=== PATIENT | female | born 1935 | race Caucasian/White ===

== ENCOUNTER 2017-11-24 16:15 | Outpatient (RCR) | payer MEDICARE, BC ==
--- NOTE | 2017-11-01 14:24 | PT INITIAL EVALUATION ---
MEDICAL DIAGNOSIS: chronic low back TREATMENT DIAGNOSIS: same DATE OF ONSET: 11/01/15 SUBJECTIVE: Treva Dickens presents to physical therapy with complaints of low back pain. She states that the pain started approximately 2 years ago with no apparent mechanism of injury. She states that the pain increases with prolonged standing, cooking, making bed, and walking at least 1/2 mile. After doing an aggravated activity, she rates her pain to be approximately 6/10. She states reports her resting pain to be 0/10. Furthermore, she states that she feels like this low back pain is becoming worse. She also reports that the feels better with sitting and lying. She denies any of the following items: abnormal gait or bladder, surgeries, accidents, night pain, or unexplained weight loss. Pain location is T11-L1: spinous process to R facet process. REHAB PROBLEM LIST: Increased Pain Decreased ROM Decreased Strength Decreased Endurance Decreased Function Decreased ADL's PREVIOUS MEDICAL HISTORY: See EMR OCCUPATION: Retired OBJECTIVE: Posture: She demonstrated mild impairments with B rounded shoulders, thoracic kyphosis, and decreased lumbar lordosis. She demonstrated decreased pain with improved posture mechanics. ROM: Trunk: flexion: NIL: stretch end feel. extension: NIL: stretch end feel. Side gliding R: MIN: stretch end feel. Side gliding L: NIL: stretch end feel Strength: B hip abduction, extension, adduction, knee extension and flexion, and ankle DF and PF: 4+/5 or 5/5. Palpation: TTP: T11-L1: spinous process to R facet process Special Tests: AALIYAH: uncomfortable feeling during the test and better following the testing, which resulting in increased AROM in side gliding R. Mobility: Independent Gait: She demonstrated normal gait mechanics ASSESSMENT: Treva will benefit from skilled physical therapy addressing the listed impairments to improve function and QOL. During the examination, she demonstrated a posterior derangement that responded well to extension based principles with decreased pain and improved AROM. She is independent on her one home exercise. Short Term Goals 2 weeks: Pt will demonstrate centralized low back pain to improve function and QOL. 4 weeks: Pt will demonstrate abolished low back pain (0/10) to improve function and QOL. 6 weeks: Pt will be able to perform prolonged standing, cooking, and making beds to improve function and QOL. Patient's Goals no pain with standing, cooking, walking, and making bed. PLAN: Patient to be seen for Manual Therapy/STM/MET Strengthening/condition Range of Motion Spinal Stabilization Work Hardening/Cond Stretching Neuromuscular Re-ed Closed Chain Program Posture/Body mechanics Home Exercise Program Therapeutic Activities 2x/Week for 6 Weeks If you have any questions, comments, or concerns about this report or plan, please contact me at . Thank you, Tanner Romero, PT, DPT MTDD
[~2017-11-24 16:15] MED LIST: ALLERGY SHOTS SC; AMLO-96 PO; ATOR10TA24 PO; CALC500T6 PO; CALC500T76 PO; CALCIUM; CELE-1 PO; CELEBREX PO; CHOL100052 PO; CIPR-345 PO; CLOB15CR21 TP; CLOB15CR22 TP; CYA1000 PO; DOC100 PO; EST42T PV; FEX60 PO; FEXO-67 PO; FEXO30TA36 PO; FLUT10SP NS; FLUT16SP19 NS; FLUT1AER INH; IRON PO; LEVO50 PO; LEVO50TA86 PO; LEVO75TA68 PO; LISI-362 PO; LISI5TAB25 PO; LOR5 PO; LOSA25TA50 PO; LOSA50TA72 PO; NIT100 PO; OLO2ODPT OD; PANT40TA65 PO; POLY17PO25 PO; SIMV-42 PO; SIMV-49 PO; SODI30SP6 NS; SULF-198 PO; TOLT4CAP13 PO; TUM500 PO
--- NOTE | 2017-11-24 17:08 | PT PLAN OF CARE ---
Physician: Demarcus Ford MD Patient is being seen: 2x/week Therapist: Tanner Romero, PT, DPT Medical Diagnosis: chronic low back Treatment Diagnosis: same Date of Onset: 11/01/15 Date of Initial Evaluation: 11/01/17 Date patient was last seen: 11/24/17 Number of treatments: 6 Number of cancellations/No shows: 0 INTERVENTIONS: Manual Therapy/STM/MET Strengthening/condition Range of Motion Spinal Stabilization Work Hardening/Cond Stretching Neuromuscular Re-ed Closed Chain Program Posture/Body mechanics Home Exercise Program Therapeutic Activities GOALS: 2 weeks: Pt will demonstrate centralized low back pain to improve function and QOL. MET 4 weeks: Pt will demonstrate abolished low back pain (0/10) to improve function and QOL. MET 6 weeks: Pt will be able to perform prolonged standing, cooking, and making beds to improve function and QOL. MET PATIENT'S GOAL: no pain with standing, cooking, walking, and making bed. Status of Patient's Goals: MET Patient Compliance: Excellent Prognosis: Excellent Reasons for continuing therapy: This is a discharge note for Treva Dickens. She reports that she is doing well. She reports that she no longer has any low back pain. She states that she has been busy over the last two days without any low back pain. She states that she continues to work on posture and perform her specific exercise as prescribed. She progressed well with abolished low back pain, increased trunk AROM in all directions along with normal end feels. Furthermore, she demonstrated a complete return to function with abolished low back pain. She has met all of her goals. As a result, she will be discharged from PT. Posture: She demonstrated mild impairments with B rounded shoulders, thoracic kyphosis, and decreased lumbar lordosis. She demonstrated decreased pain with improved posture mechanics. ROM: Trunk: flexion: NIL: stretch end feel. extension: NIL: stretch end feel. Side gliding R: NIL: stretch end feel. Side gliding L: NIL: stretch end feel Strength: B hip abduction, extension, adduction, knee extension and flexion, and ankle DF and PF: 4+/5 or 5/5. Palpation: No longer TTP Mobility: Independent If you have any questions, please contact me at [phone]. Thank you, Tanner Romero, PT, DPT [facility]
[2018-01-02] MEDS ORDERED: LOSA50TA72 PO (17:15)
== END 2018-01-30 ==
LOC: PT 16:15
PROVIDERS: ATTEND Internal Medicine
DX: M54.9 Dorsalgia, unspecified (principal)
CPT/HCPCS: 97161

== ENCOUNTER → 2018-02-13 | Outpatient (CLI) | payer MEDICARE, BC ==
[~2018-02-13] MED LIST changes: +BENZ100C4 PO; +CIPR-215 PO
== END ==
LOC: LAB 11:08
PROVIDERS: ATTEND Internal Medicine
DX: N39.0 Urinary tract infection, site not specified (principal); B96.20 Unspecified Escherichia coli [E. coli] as the cause of diseases classified elsewhere
CPT/HCPCS: 87077; 87088; 87186

== ENCOUNTER → 2018-02-13 | Outpatient (CLI) | payer MEDICARE, BC ==
--- NOTE | 2018-02-13 15:26 | RADIOLOGY IMAGING REPORT ---
FACILITY: [facility] - [place] PATIENT NAME: Treva Dickens : 1935 MR: [id number] V: [id number] EXAM DATE: ORDERING PHYSICIAN: JAMIE BLUE TECHNOLOGIST: Location: [facility] - [place] Patient: Treva Dickens : 1935 Visit/Account:[id number] Date of Sevice: 02/13/2018 Technique: CHEST PA AND LAT HISTORY: cough COMPARISON: None available Findings: Mild bibasilar and right upper lung scarring versus atelectasis is noted. No pleural effus ion. There is mild pulmonary hyperexpansion. The cardiomediastinal silhouette is normal. Impression: 1. No acute cardiopulmonary process. 2. Chronic lung changes as described above. Report Dictated By: Jordan Oconnor DO at 02/13/2018 3:19 PM Report E-Signed By: Jordan Oconnor DO at 02/13/2018 3:21 PM WSN:[id number]
== END ==
LOC: RAD 14:51
PROVIDERS: ATTEND Internal Medicine
DX: R91.8 Other nonspecific abnormal finding of lung field (principal)
CPT/HCPCS: 71046

== ENCOUNTER → 2018-04-26 | Outpatient (CLI) | payer MEDICARE, BC | LOC: LAB 11:12 | PROVIDERS: ATTEND Internal Medicine | DX: N39.0 Urinary tract infection, site not specified (principal) | CPT/HCPCS: 81001; 87088 ==

== ENCOUNTER → 2018-05-04 | Outpatient (CLI) | payer MEDICARE, BC | LOC: LAB 11:21 | PROVIDERS: ATTEND Internal Medicine | DX: N39.0 Urinary tract infection, site not specified (principal) | CPT/HCPCS: 81001 ==

== ENCOUNTER 2018-05-23 20:02 | Inpatient (IN) | payer MEDICARE, BC ==
[~2018-05-23] VITALS: Ht 157.5 cm; Wt 61.9 kg
--- NOTE | 2018-05-23 20:08 | ER Report ---
History and Physical Time Seen By MD: 20:08 HPI/ROS CHIEF COMPLAINT: Right lower back pain, nausea, vomiting HISTORY OF PRESENT ILLNESS: Patient is an 82-year-old female here with complaints of right lower back pain superficial musculature. Pain started around May 17 and the patient was out walking. She reports that today the pain acutely worsened and she had nausea and vomiting as a result of the increased pain. She did take ibuprofen without significant relief of symptoms. Patient denies headache, blurred vision, chest pain, shortness of breath, abdominal pain , dysuria, hematuria, melena. REVIEW OF SYSTEMS: Constitutional: No fever, no chills. Eyes: No discharge. ENT: No sore throat. Cardiovascular: No chest pain, no palpitations. Respiratory: No cough, no shortness of breath. Gastrointestinal: No abdominal pain, no vomiting. Genitourinary: No hematuria. Musculoskeletal: + right lower back pain, reproducible on palpation. Skin: No rashes. Neurological: No headache. Allergies: Uncoded Allergies: hayfever (Allergy, Mild, UNKNOWN, 04/19/12) ANIMALS (Allergy, Unknown, 03/21/08) Home Meds Active Scripts Amlodipine Besylate (AMLODIPINE BESYLATE) 5 Mg Tablet, 1 TAB PO QDAY, #30 TAB 11 Refills Prov:JAMIE BLUE MD 02/13/18 Benzonatate 100 Mg Cap (TESSALON PERLE 100 MG CAP) 100 Mg Capsule, 100 MG PO TID Y for cough, #30 CAP Prov:JAMIE BLUE MD 02/13/18 Losartan Potassium (LOSARTAN POTASSIUM) 50 Mg Tablet, 50 MG PO BID, #180 TAB 3 Refills Prov:JAMIE BLUE MD 01/02/18 Levothyroxine Sodium (LEVOTHYROXINE SODIUM) 50 Mcg Tablet, 1 TAB PO QDAY, #90 TAB 3 Refills Prov:JAMIE BLUE MD 10/11/17 Simvastatin (SIMVASTATIN) 20 Mg Tablet, 1 TAB PO HS, #90 TAB 4 Refills Prov:JAMIE BLUE MD 04/25/17 Clobetasol Propionate/Emoll (CLOBETASOL EMOLLIENT 0.05% CRM) 15 Gm Cream..g., 2 SEE TP QWEEK Y for prn, #1 TUBE 1 Refill Prov:JAMIE BLUE MD 01/06/17 Reported Medications Calcium Carbonate (CALCIUM) 500 Mg Tablet, 1 TAB PO QDAY 04/05/17 Cyanocobalamin (Vitamin B-12) (VITAMIN B-12) 1,000 Mcg Tablet, 1 MCG PO QDAY 04/05/17 Fluticasone/Vilanterol 100/25 Mcg/Inh (BREO ELLIPTA 100/25 MCG) 1 Each Aer.pow.ba, 1 INH INH QDAY, INH 02/22/17 Cholecalciferol (Vitamin D3) (VITAMIN D) 1,000 Unit Tablet, 1 TAB PO DAILY 08/21/14 Discontinued Scripts Sulfamethoxazole/Trimet 800-160 Mg Tab (BACTRIM DS TABLET) 1 Each Tablet, 1 TAB PO Q12H for 5 Days, #10 TAB Prov:JAMIE BLUE MD 04/26/18 Smoking Status: Never Smoker Hx Alcohol Use: No Constitutional Vital Sign - Last 24 Hours 05/23/18 05/23/18 05/23/18 05/23/18 20:07 20:08 20:17 20:30 Temp 98.2 Pulse 73 74 Resp 16 B/P (MAP) 162/74 (103) 162/74 155/76 (102) Pulse Ox 97 93 O2 Delivery Room Air 05/23/18 05/23/18 05/23/18 05/23/18 20:32 20:47 21:01 21:06 Pulse 72 75 B/P (MAP) 129/68 (88) Pulse Ox 91 90 90 05/23/18 05/23/18 05/23/18 05/23/18 21:21 21:30 21:36 21:51 Pulse 76 76 76 B/P (MAP) 121/83 (96) Pulse Ox 89 90 90 05/23/18 05/23/18 05/23/18 05/23/18 22:00 22:05 22:30 22:35 Pulse 80 76 B/P (MAP) 145/87 (106) 138/64 (88) Pulse Ox 91 89 05/23/18 05/23/18 05/23/18 05/23/18 22:50 23:13 23:20 23:30 Pulse 77 90 B/P (MAP) 139/66 (90) 128/64 (85) Pulse Ox 88 87 Intake and Output 05/23/18 05/23/18 05/24/18 14:59 22:59 06:59 Intake Total 500 ml Output Total 20 ml Balance 480 ml Physical Exam General Appearance: The patient is alert, has no immediate need for airway protection and no signs of toxicity. Mild distress due to pain Eyes: Pupils equal and round no pallor or injection. ENT, Mouth: Mucous membranes are moist. Respiratory: There are no retractions, lungs are clear to auscultation. Cardiovascular: Regular rate and rhythm. Gastrointestinal: Abdomen is soft and non tender, no masses, bowel sounds normal. Neurological: No focal neurological deficits Skin: Warm and dry, no rashes. Musculoskeletal: Neck is supple non tender, + TTP right lower back near sciatic notch Extremities are nontender, nonswollen and have full range of motion. DIFFERENTIAL DIAGNOSIS: After history and physical exam differential diagnosis was considered for back pain including but not limited to muscular pain, herniated disc, spine fracture, intra-abdominal causes and urinary tract infection. Medical Decision Making Data Points Result Diagram: 05/23/18203105/23/183 Laboratory Hematology Test 05/23/18 20:32 05/23/18 20:43 05/23/18 23:23 Red Blood Count 4.01 M/uL (4.17-5.56) Mean Corpuscular Volume 91.1 fL (80.0-96.0) Mean Corpuscular Hemoglobin 32.4 pg (26.0-33.0) Mean Corpuscular Hemoglobin Concent 35.6 g/dL (32.0-36.0) Red Cell Distribution Width 13.5 % (11.5-14.5) Mean Platelet Volume 6.5 fL (7.2-11.1) Neutrophils (%) (Auto) 77.1 % (39.4-72.5) Lymphocytes (%) (Auto) 16.4 % (17.6-49.6) Monocytes (%) (Auto) 5.5 % (4.1-12.4) Eosinophils (%) (Auto) 0.5 % (0.4-6.7) Basophils (%) (Auto) 0.5 % (0.3-1.4) Nucleated RBC Relative Count (auto) 0.0 /100WBC Neutrophils # (Auto) 6.5 K/uL (2.0-7.4) Lymphocytes # (Auto) 1.4 K/uL (1.3-3.6) Monocytes # (Auto) 0.5 K/uL (0.3-1.0) Eosinophils # (Auto) 0.0 K/uL (0.0-0.5) Basophils # (Auto) 0.0 K/uL (0.0-0.1) Nucleated RBC Absolute Count (auto) 0.00 K/uL Lactate 1.2 mmol/L (0.7-2.1) Total Bilirubin 0.6 mg/dl (0.2-1.3) Aspartate Amino Transf (AST/SGOT) 31 U/L (0-35) Alanine Aminotransferase (ALT/SGPT) 21 U/L (0-56) Alkaline Phosphatase 90 U/L (0-126) Total Protein 7.4 g/dl (6.3-8.2) Albumin 4.2 g/dl (3.5-5.0) Lipase 48 U/L (23-300) Urine Color Straw Urine Clarity Clear Urine pH 7.0 pH (4.8-9.5) Urine Specific [place] 1.011 Urine Protein Negative mg/dL (NEGATIVE) Urine Glucose (UA) Negative mg/dL (NEGATIVE) Urine Ketones 20 mg/dL (NEGATIVE) Urine Blood Negative (NEGATIVE) Urine Nitrite Negative (NEGATIVE) Urine Bilirubin Negative (NEGATIVE) Urine Urobilinogen Negative mg/dL (0.2-1.9) Urine Leukocyte Esterase Negative (NEGATIVE) Urine RBC None /HPF (0-2/HPF) Urine WBC <1 /HPF (0-5/HPF) Urine Squamous Epithelial Cells Moderate /LPF (NONE-FEW) Urine Bacteria Negative /HPF (NONE-FEW) Urine Mucus None /HPF (NONE-FEW) Sodium Level 120 mmol/L (137-145) Potassium Level 4.8 mmol/L (3.5-5.0) Chloride Level 90 mmol/L (98-107) Carbon Dioxide Level 23 mmol/L (22-31) Blood Urea Nitrogen 15 mg/dl (7-18) Creatinine 0.70 mg/dl (0.52-1.04) Glomerular Filtration Rate Calc > 60.0 Random Glucose 120 mg/dl (75-110) Calcium Level 7.9 mg/dl (8.4-10.2) Chemistry Test 7/10/18 20:32 05/23/18 20:43 05/23/18 23:23 White Blood Count 8.5 k/uL (4.5-11.0) Red Blood Count 4.01 M/uL (4.17-5.56) Hemoglobin 13.0 g/dL (12.0-16.0) Hematocrit 36.5 % (34.0-47.0) Mean Corpuscular Volume 91.1 fL (80.0-96.0) Mean Corpuscular Hemoglobin 32.4 pg (26.0-33.0) Mean Corpuscular Hemoglobin Concent 35.6 g/dL (32.0-36.0) Red Cell Distribution Width 13.5 % (11.5-14.5) Platelet Count 318 K/uL (150-450) Mean Platelet Volume 6.5 fL (7.2-11.1) Neutrophils (%) (Auto) 77.1 % (39.4-72.5) Lymphocytes (%) (Auto) 16.4 % (17.6-49.6) Monocytes (%) (Auto) 5.5 % (4.1-12.4) Eosinophils (%) (Auto) 0.5 % (0.4-6.7) Basophils (%) (Auto) 0.5 % (0.3-1.4) Nucleated RBC Relative Count (auto) 0.0 /100WBC Neutrophils # (Auto) 6.5 K/uL (2.0-7.4) Lymphocytes # (Auto) 1.4 K/uL (1.3-3.6) Monocytes # (Auto) 0.5 K/uL (0.3-1.0) Eosinophils # (Auto) 0.0 K/uL (0.0-0.5) Basophils # (Auto) 0.0 K/uL (0.0-0.1) Nucleated RBC Absolute Count (auto) 0.00 K/uL Lactate 1.2 mmol/L (0.7-2.1) Total Bilirubin 0.6 mg/dl (0.2-1.3) Aspartate Amino Transf (AST/SGOT) 31 U/L (0-35) Alanine Aminotransferase (ALT/SGPT) 21 U/L (0-56) Alkaline Phosphatase 90 U/L (0-126) Total Protein 7.4 g/dl (6.3-8.2) Albumin 4.2 g/dl (3.5-5.0) Lipase 48 U/L (23-300) Urine Color Straw Urine Clarity Clear Urine pH 7.0 pH (4.8-9.5) Urine Specific [place] 1.011 Urine Protein Negative mg/dL (NEGATIVE) Urine Glucose (UA) Negative mg/dL (NEGATIVE) Urine Ketones 20 mg/dL (NEGATIVE) Urine Blood Negative (NEGATIVE) Urine Nitrite Negative (NEGATIVE) Urine Bilirubin Negative (NEGATIVE) Urine Urobilinogen Negative mg/dL (0.2-1.9) Urine Leukocyte Esterase Negative (NEGATIVE) Urine RBC None /HPF (0-2/HPF) Urine WBC <1 /HPF (0-5/HPF) Urine Squamous Epithelial Cells Moderate /LPF (NONE-FEW) Urine Bacteria Negative /HPF (NONE-FEW) Urine Mucus None /HPF (NONE-FEW) Glomerular Filtration Rate Calc > 60.0 Calcium Level 7.9 mg/dl (8.4-10.2) Urinalysis Test 05/23/18 20:43 Urine Color Straw Urine Clarity Clear Urine pH 7.0 pH (4.8-9.5) Urine Specific [place] 1.011 Urine Protein Negative mg/dL (NEGATIVE) Urine Glucose (UA) Negative mg/dL (NEGATIVE) Urine Ketones 20 mg/dL (NEGATIVE) Urine Blood Negative (NEGATIVE) Urine Nitrite Negative (NEGATIVE) Urine Bilirubin Negative (NEGATIVE) Urine Urobilinogen Negative mg/dL (0.2-1.9) Urine Leukocyte Esterase Negative (NEGATIVE) Urine RBC None /HPF (0-2/HPF) Urine WBC <1 /HPF (0-5/HPF) Urine Squamous Epithelial Cells Moderate /LPF (NONE-FEW) Urine Bacteria Negative /HPF (NONE-FEW) Urine Mucus None /HPF (NONE-FEW) EKG/Imaging Imaging ABDOMEN/PELVIS WITH CONTRAST HISTORY: right back pain TECHNIQUE: Axial images were obtained through the abdomen and pelvis with intravenous contrast . One of the following dose optimization techniques was utilized in the performance of this exam: automated exposure control; adjustment of the mA and/or kv according to patient size; or use of iterative reconstruction technique. Specific details can be referenced in the facility's radiology CT exam operational policy. CONTRAST: 75 cc of Isovue-370 COMPARISON: None. FINDINGS: Visualized lung bases: Negative. Hepatobiliary: Cholecystectomy. No biliary ductal dilatation. Spleen: Negative. Adrenals: Negative. Pancreas: Negative. Kidneys/ureters/bladder: 6 mm cyst within the lower pole of the right kidney. No hydronephrosis. Bowel/peritoneum/mesentery: Appendix is not visualized. Extensive colonic diverticulosis without acute inflammatory change. No bowel obstruction, free air or ascites. Posterior outpouching of the anal canal with soft tissue thickening Vessels: Mild arterial calcifications Lymph nodes: Negative. Pelvic genitourinary: Hysterectomy. Bones/body wall: Dextroscoliosis of the lumbar spine with multilevel mild degenerative disc disease.. Other findings: None significant IMPRESSION: 1. Extensive colonic diverticulosis without acute inflammatory change. 2. Posterior outpouching of the anal canal with soft tissue thickening. Recommend clinical correlation for fistula or mass. EXAMINATION: Lumbar spine radiographs 2 views HISTORY: Right lower back pain. COMPARISON: 09/12/2015. FINDINGS: AP and lateral views of the lumbar spine are obtained. Bones: There are 5 nonrib-bearing lumbar type vertebral bodies. Vertebral body heights are maintained. Disc spaces: Multilevel disc degenerative changes with disc space narrowing and endplate osteophytes. There is degenerative sclerosis along the endplates at the L2-3 level, similar to prior exam. Posterior elements: Multilevel facet hypertrophy, more prominent in the lower lumbar spine. Alignment: Mild right convex scoliotic curvature of the lumbar spine. Hardware: Surgical clips in the right upper quadrant of the abdomen. Soft tissues: Calcified plaque of the aorta. IMPRESSION: No evidence of acute fracture of the lumbar spine. Mild right convex scoliotic curvature of the lumbar spine with multilevel disc and facet degenerative changes. ED Course/Re-evaluation ED Course Patient is an 82-year-old female here with complaints of right lower back pain since May 17. Patient reports that the pain occurred after she was walking around for an extended period of time and that the pain is worsening. Pain is located in the region of the sciatic notch and is very tender on palpation. Denies midline back pain or trauma. Patient labs and x-ray imaging of the L- spine was ordered and showed no acute fractures. Labs were remarkable for a sodium level of 122. Patient received 2 separate boluses of 500 mL of normal saline and a repeat BMP was collected and showed sodium of 120. CT imaging of the abdomen and pelvis with IV contrast was completed and showed no acute findings. I discussed the patient with Dr. Medina with the hospitalist service who accepted the patient for inpatient treatment and optimization. I updated the patient regarding plans of treatment. Decision to Disposition Date: May 23, 2018 Decision to Disposition Time: 23:47 Depart Departure Latest Vital Signs Vital Signs Date Time Temp Pulse Resp B/P (MAP) Pulse Ox O2 Delivery O2 Flow Rate FiO2 05/23/18 23:30 128/64 (85) 05/23/18 23:20 90 87 05/23/18 20:08 98.2 16 Room Air Impression: Primary Impression: Back pain Additional Impressions: Nausea & vomiting Hyponatremia Condition: Improved Disposition: Admitted from ER Referrals: JAMIE BLUE MD (PCP) Problem Qualifiers JETT HINSON DO May 23, 2018 20:08
[2018-05-23] MEDS ORDERED: NS(*) 0.9% 500 ML BAG 500 ML IV ONE ×2 (20:18→22:20)
[2018-05-23] MEDS ORDERED: ONDANSETRON 4 MG/2 ML VIAL IVP ONE (20:20)
[2018-05-23] MEDS ORDERED: ACETAMINOPHEN 325 MG TAB PO ONE (20:20)
[2018-05-23 20:41] LABS: PLATELET COUNT, AUTOMATED 318 K/uL (150-450)
--- NOTE | 2018-05-23 21:24 | RADIOLOGY IMAGING REPORT ---
[place] [facility] [place] NAME: Treva Dickens : 1935 MR: [id number] V: [id number] EXAM DATE: ORDERING PHYSICIAN: JETT HINSON TECHNOLOGIST: Location: [facility] - [place] Patient: Treva Dickens : 1935 Visit/Account:[id number] Date of Sevice: 05/23/2018 EXAMINATION: Lumbar spine radiographs 2 views HISTORY: Right lower back pain. COMPARISON: 09/12/2015. FINDINGS: AP and lateral views of the lumbar spine are obtained. Bones: There are 5 nonrib-bearing lumbar type vertebral bodies. Vertebral body heights are maintaine d. Disc spaces: Multilevel disc degenerative changes with disc space narrowing and endplate osteophytes . There is degenerative sclerosis along the endplates at the L2-3 level, similar to prior exam. Posterior elements: Multilevel facet hypertrophy, more prominent in the lower lumbar spine. Alignment: Mild right convex scoliotic curvature of the lumbar spine. Hardware: Surgical clips in the right upper quadrant of the abdomen. Soft tissues: Calcified plaque of the aorta. IMPRESSION: No evidence of acute fracture of the lumbar spine. Mild right convex scoliotic curvature of the lumbar spine with multilevel disc and facet degenerative changes. Report Dictated By: Ryan Haji MD at 05/23/2018 9:15 PM Report E-Signed By: Ryan Haji MD at 05/23/2018 9:20 PM [id number]
[2018-05-23] MEDS ORDERED: IOPAMIDOL 76% 100 ML INFUS BTL 100 ML ONE (23:00)
--- NOTE | 2018-05-23 23:41 | RADIOLOGY IMAGING REPORT ---
FACILITY: [facility] PATIENT NAME: Treva Dickens : 1935 MR: [id number] V: [id number] EXAM DATE: ORDERING PHYSICIAN: JETT HINSON TECHNOLOGIST: [place] [facility] [place] Treva Dickens : 1935 Visit/Account:[id number] Date of Sevice: 05/23/2018 ABDOMEN/PELVIS WITH CONTRAST HISTORY: right back pain TECHNIQUE: Axial images were obtained through the abdomen and pelvis with intravenous contrast . One of the following dose optimization techniques was utilized in the performance of this exam: automate d exposure control; adjustment of the mA and/or kv according to patient size; or use of iterative rec onstruction technique. Specific details can be referenced in the facility's radiology CT exam operati onal policy. CONTRAST: 75 cc of Isovue-370 COMPARISON: None. FINDINGS: Visualized lung bases: Negative. Hepatobiliary: Cholecystectomy. No biliary ductal dilatation. Spleen: Negative. Adrenals: Negative. Pancreas: Negative. Kidneys/ureters/bladder: 6 mm cyst within the lower pole of the right kidney. No hydronephrosis. Bowel/peritoneum/mesentery: Appendix is not visualized. Extensive colonic diverticulosis without acu te inflammatory change. No bowel obstruction, free air or ascites. Posterior outpouching of the anal canal with soft tissue thickening Vessels: Mild arterial calcifications Lymph nodes: Negative. Pelvic genitourinary: Hysterectomy. Bones/body wall: Dextroscoliosis of the lumbar spine with multilevel mild degenerative disc disease. . Other findings: None significant IMPRESSION: 1. Extensive colonic diverticulosis without acute inflammatory change. 2. Posterior outpouching of the anal canal with soft tissue thickening. Recommend clinical correlatio n for fistula or mass. Report Dictated By: Sourav Parmar MD at 05/23/2018 11:27 PM Report E-Signed By: Sourav Parmar MD at 05/23/2018 11:38 PM WSN:[id number]
[2018-05-23] MEDS ORDERED: ACETAMINOPHEN 500 MG TAB PO PRN (23:45)
[2018-05-23] MEDS ORDERED: ONDANSETRON 4 MG/2 ML VIAL IVP PRN (23:45)
[2018-05-23] MEDS ORDERED: NS(*) 0.9% 1000 ML BAG 1,000 ML IV ONE (23:45)
[2018-05-23] MEDS ORDERED: ALBUTEROL 2.5 MG/3 ML NEB NEB PRN (23:45)
--- NOTE | 2018-05-24 | History & Physical ---
History of Present Illness History of Present Illness 82yo female with a h/o hypertension, recurrent UTI and intermittent low back pain who came to the ER for vomiting and worsening low back pain. She was in her normal state of health until 6 days ago. She walked around a lot without sitting down at a 17 of May event. Toward the end of the event, her right low back began to hurt. When she has back pain, that is where it bothers her. The pain was worse with walking and improved with sitting or lying down. The pain didn't radiate. The pain has persisted. Today, she was awoken at about 0300 by a ring of her phone and was not able to go back to sleep. 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 The pain in the back began worsening. At its worst, it was 8/10. She ended up vomiting. There was no blood or coffee ground looking material in the vomitus. She ended up coming to the ER. She denies cp/sob/diarrhea/hematochezia/melena/difficulty urinating/pyuria/f/c. She did have a UTI a month ago, but had symptoms then. In the ER, she was given 500cc of NS, APAP and Zofran. She is much more comfortable now. She has been able to sip liquids. History Problems: (1) Hypothyroidism Status: Chronic (2) Degenerative joint disease Status: Chronic (3) Chronic cough Status: Chronic (4) Chronic back pain Status: Acute (5) Benign hypertension Status: Chronic (6) Hyperlipidemia Status: Chronic (7) Hypothyroidism Onset Date: 08/27/2014 Status: Chronic Home Meds Active Scripts Amlodipine Besylate (AMLODIPINE BESYLATE) 5 Mg Tablet, 1 TAB PO QDAY, #30 TAB 11 Refills Prov:JAMIE BLUE MD 02/13/18 Benzonatate 100 Mg Cap (TESSALON PERLE 100 MG CAP) 100 Mg Capsule, 100 MG PO TID Y for cough, #30 CAP Prov:JAMIE BLUE MD 02/13/18 Losartan Potassium (LOSARTAN POTASSIUM) 50 Mg Tablet, 50 MG PO BID, #180 TAB 3 Refills Prov:JAMIE BLUE MD 01/02/18 Levothyroxine Sodium (LEVOTHYROXINE SODIUM) 50 Mcg Tablet, 1 TAB PO QDAY, #90 TAB 3 Refills Prov:JAMIE BLUE MD 10/11/17 Simvastatin (SIMVASTATIN) 20 Mg Tablet, 1 TAB PO HS, #90 TAB 4 Refills Prov:JAMIE BLUE MD 04/25/17 Clobetasol Propionate/Emoll (CLOBETASOL EMOLLIENT 0.05% CRM) 15 Gm Cream..g., 2 SEE TP QWEEK Y for prn, #1 TUBE 1 Refill Prov:JAMIE BLUE MD 01/06/17 Reported Medications Calcium Carbonate (CALCIUM) 500 Mg Tablet, 1 TAB PO QDAY 04/05/17 Cyanocobalamin (Vitamin B-12) (VITAMIN B-12) 1,000 Mcg Tablet, 1 MCG PO QDAY 04/05/17 Fluticasone/Vilanterol 100/25 Mcg/Inh (BREO ELLIPTA 100/25 MCG) 1 Each Aer.pow.ba, 1 INH INH QDAY, INH 02/22/17 Cholecalciferol (Vitamin D3) (VITAMIN D) 1,000 Unit Tablet, 1 TAB PO DAILY 08/21/14 Discontinued Scripts Sulfamethoxazole/Trimet 800-160 Mg Tab (BACTRIM DS TABLET) 1 Each Tablet, 1 TAB PO Q12H for 5 Days, #10 TAB Prov:JAMIE BLUE MD 04/26/18 Allergies: Uncoded Allergies: hayfever (Allergy, Mild, UNKNOWN, 04/19/12) ANIMALS (Allergy, Unknown, 03/21/08) Patient History: Diabetes mellitus (DM) BROTHER OR SISTER (Brother), , Age:79 BROTHER OR SISTER (Sister), FH: CAD (coronary artery disease) FH: breast cancer MOTHER, , Age:42, Onset:37 BROTHER OR SISTER (Brother), , Age:79 FH: lupus BROTHER OR SISTER (Sister), , Age:50's - 60 FH: myocardial infarction FATHER, , Age:77 Polio BROTHER OR SISTER (Brother), , Age:79 Smoking Status: Never Smoker Hx Alcohol Use: No Hx Substance Use Disorder: No Review of Systems All Systems Reviewed/Normal: Yes, Except as Noted Exam Vital Signs Vital Signs Date Time Temp Pulse Resp B/P (MAP) Pulse Ox O2 Delivery O2 Flow Rate FiO2 05/23/18 23:30 128/64 (85) 05/23/18 23:20 90 87 05/23/18 20:08 98.2 16 Room Air General Appearance: Alert, Awake, No Acute Distress Neuro: No Gross deficits Eyes: PERRLA ENT: Moist Mucous Membranes Cardiovascular: Regular Rate and Rhythm, No JVD Respiratory: Clear to Auscultation GI: Abd Soft and Non-Tender : No CVA Tenderness Musculoskeletal: Other (Point tenderness over right SI joint with palpation.) Extremities: No Edema Medical Decision Making Data Points Result Diagram: 05/23/18203105/23/182322 Item Value Date Time Sodium Level 122 mmol/L *L 05/23/182031 Sodium Level 120 mmol/L *L 05/23/182322 Blood Urea Nitrogen 15 mg/dl 05/23/182322 Creatinine 0.70 mg/dl 05/23/182322 Creatinine 0.70 mg/dl 05/23/182031 Blood Urea Nitrogen 19 mg/dl H 05/23/182031 Random Glucose 122 mg/dl H 05/23/182031 Random Glucose 120 mg/dl H 05/23/182322 Lactate 1.2 mmol/L 05/23/182031 Calcium Level 7.9 mg/dl L 05/23/182322 Calcium Level 8.7 mg/dl 05/23/182031 Total Bilirubin 0.6 mg/dl 05/23/182031 Aspartate Amino Transf (AST/SGOT) 31 U/L 05/23/182031 Alanine Aminotransferase (ALT/SGPT) 21 U/L 05/23/182031 Alkaline Phosphatase 90 U/L 05/23/182031 Total Protein 7.4 g/dl 05/23/182031 Albumin 4.2 g/dl 05/23/182031 Lipase 48 U/L 05/23/182031 Neutrophils (%) (Auto) 77.1 % H 05/23/182031 Mean Corpuscular Volume 91.1 fL 05/23/182031 Lymphocytes (%) (Auto) 16.4 % L 05/23/182031 Urine RBC None /HPF 05/23/182042 Urine WBC <1 /HPF 05/23/182042 Urine Squamous Epithelial Cells Moderate /LPF H 05/23/182042 Urine Bacteria Negative /HPF 05/23/182042 Urine Mucus None /HPF 05/23/182042 EKG / Imaging Imaging CT of abd/pelvis - 1. Extensive colonic diverticulosis without acute inflammatory change. 2. Posterior outpouching of the anal canal with soft tissue thickening. Recommend clinical correlation for fistula or mass. Assessment and Plan Problems: (1) Hyponatremia Status: Acute Assessment & Plan: The etiology is unclear. She did have a sodium of 125 over a year ago that improved without intervention. She is not on any diuretics or centrally acting medications. She will be gently hydrated. A urine sodium and urine osmolality will be checked. BMP will be checked in the morning. (2) Nausea & vomiting Status: Acute Assessment & Plan: She had one episode. It could have been related to the increasing pain in the back. She will be gently hydrated and given symptomatic treatment. (3) Chronic back pain Status: Acute Assessment & Plan: She presented with 6 days of pain over the right SI joint that acutely worsened today. She has had pain intermittently in the same area. The pain is exacerbated by activity and can be provoked with palpation. She is more comfortable after APAP, so will continue. The CT didn't show any gross abnormalities. (4) Hypothyroidism Status: Chronic Assessment & Plan: Continue chronic levothyroxine. (5) Hyperlipidemia Status: Chronic Assessment & Plan: Continue chronic simvastatin. (6) Chronic cough Status: Chronic Assessment & Plan: Continue chronic Breo. Lungs are clear. (7) Benign hypertension Status: Chronic Assessment & Plan: Continue chronic Losartan and Amlodipine with parameters Copies to: JAMIE BLUE MD Venous Thromboembolism Antithrombotics Is Pt On Any Antithrombotics?: No Exam Sepsis Risk: No Definite Risk SHANELLE LOCKWOOD MD May 24, 2018 00:00
[2018-05-24 01:01] VITALS: BP 129/73
[2018-05-24] MEDS ORDERED: GLUC100026 PO (01:28)
[2018-05-24] MEDS ORDERED: FEXO-67 PO (01:28)
[2018-05-24] MEDS ORDERED: FLUO60GE TP (01:32)
[2018-05-24 03:30] VITALS: BP 129/72
[2018-05-24 05:51] LABS: PLATELET COUNT, AUTOMATED 291 K/uL (150-450)
[2018-05-24] MEDS: LEVOTHYROXINE SOD 0.05 MG TAB PO SCH (06:17)
--- NOTE | 2018-05-24 08:44 | Hospitalist Progress Note ---
Subjective Progress Notes Subjective She reports nausea is resolved. Back pain seems to be improved. Physical Exam Vital Signs Date Time Temp Pulse Resp B/P (MAP) Pulse Ox O2 Delivery O2 Flow Rate FiO2 05/24/18 07:01 96 Nasal Cannula 1.0 05/24/18 06:20 74 05/24/18 01:01 98.0 18 129/73 (91) General Appearance: Alert, Awake Neuro: No Gross deficits Cardiovascular: Regular Rate and Rhythm Respiratory: Clear to Auscultation GI: Soft and Non-Tender Extremities: Warm, Perfused Psych: Alert & Oriented X3 Result Diagram: 05/24/18 0505 05/24/18 0505 Assessment and Plan Problems: (1) Hyponatremia Status: Acute Assessment & Plan: The etiology is unclear. She did have a sodium of 125 over a year ago that improved without intervention. She is not on any diuretics or centrally acting medications. Question possibly losartan (reported as less than 2%). Urine sodium and urine osmolality appear to be consistent with possible SIADH. BMP shows improved Na+ this morning after IV fluids. Will continue to monitor. (2) Nausea & vomiting Status: Acute Assessment & Plan: Improved/resolved. It could have been related to the increasing pain in the back. (3) Chronic back pain Status: Acute Assessment & Plan: She presented with 6 days of pain over the right SI joint that acutely worsened yesterday. She has had pain intermittently in the same area. The pain is exacerbated by activity and can be provoked with palpation. She is more comfortable after APAP. The CT/x-rays didn't show any gross abnormalities. (4) Hypothyroidism Status: Chronic Assessment & Plan: Continue chronic levothyroxine. (5) Hyperlipidemia Status: Chronic Assessment & Plan: Continue chronic simvastatin. (6) Chronic cough Status: Chronic Assessment & Plan: Continue chronic Breo. Lungs are clear. (7) Benign hypertension Status: Chronic Assessment & Plan: Continue chronic Losartan and Amlodipine with parameters Exam Sepsis Risk: No Definite Risk OSCAR KWOK MD May 24, 2018 08:44
[2018-05-24] MEDS: FLUTICASONE/VILANTEROL 100 MCG/25 MCG INH INH SCH (09:00)
[2018-05-24 09:06] VITALS: BP 137/57
[2018-05-24] MEDS: LOSARTAN POTASSIUM 50 MG TAB PO SCH ×2 (09:08→20:49)
[2018-05-24] MEDS: amLODIPine BESYL(*) 5 MG TAB PO SCH (09:08)
[2018-05-24 10:40] VITALS: Ht 157.5 cm; Wt 61.9 kg
[2018-05-24 19:36] VITALS: BP 114/56
[2018-05-24] MEDS ORDERED: SIMVASTATIN 20 MG TAB PO SCH (21:00)
[2018-05-24 23:01] VITALS: BP 134/64
[2018-05-25 03:21] VITALS: BP 115/79
[2018-05-25 05:46] LABS: PLATELET COUNT, AUTOMATED 319 K/uL (150-450)
[2018-05-25] MEDS: LEVOTHYROXINE SOD 0.05 MG TAB PO SCH (05:51)
[2018-05-25] MEDS: FLUTICASONE/VILANTEROL 100 MCG/25 MCG INH INH SCH (06:00)
[2018-05-25 07:53] VITALS: BP 165/66
--- NOTE | 2018-05-25 08:34 | Hospitalist Depart ---
Discharge Summary Reason for Hosp/Final Diag: (1) Hyponatremia Status: Acute Hospital Course & Plan: She was admitted with a sodium level of 120. The etiology is unclear. She did have a sodium of 125 over a year ago that improved without intervention. She is not on any diuretics or centrally acting medications. Question possibly losartan (reported as less than 2%). Urine sodium and urine osmolality appear to be consistent with possible SIADH. BMP shows improved Na+ after IV fluids. She will follow up with PCP next week. (2) Nausea & vomiting Status: Acute Hospital Course & Plan: Improved/resolved. It could have been related to the increasing pain in the back. (3) Chronic back pain Status: Acute Hospital Course & Plan: She presented with 6 days of pain over the right SI joint that acutely worsened yesterday. She has had pain intermittently in the same area. The pain is exacerbated by activity and can be provoked with palpation. She is more comfortable after APAP. The CT/x-rays didn't show any gross abnormalities. (4) Hypothyroidism Status: Chronic Hospital Course & Plan: Continue chronic levothyroxine. (5) Hyperlipidemia Status: Chronic Hospital Course & Plan: Continue chronic simvastatin. (6) Chronic cough Status: Chronic Hospital Course & Plan: Continue chronic Breo. Lungs are clear. (7) Benign hypertension Status: Chronic Hospital Course & Plan: Continue chronic Losartan and Amlodipine. Departure Latest Vital Signs Vital Signs 05/24/18 05/25/18 09:06 07:53 Temp 98.4 Pulse 63 Resp 14 B/P (MAP) 165/66 (99) Pulse Ox 92 O2 Delivery Room Air O2 Flow Rate 1.0 Weight (Pounds): 136 Weight (Ounces): 7.0 Result Diagram: 05/25/1852505/25/18525 Condition: Improved Discharge: Home, Self Care Discharge Instructions Home Meds Active Scripts Amlodipine Besylate (AMLODIPINE BESYLATE) 5 Mg Tablet, 1 TAB PO QDAY, #30 TAB 11 Refills Prov:JAMIE BLUE MD 02/13/18 Losartan Potassium (LOSARTAN POTASSIUM) 50 Mg Tablet, 50 MG PO BID, #180 TAB 3 Refills Prov:JAMIE BLUE MD 01/02/18 Levothyroxine Sodium (LEVOTHYROXINE SODIUM) 50 Mcg Tablet, 1 TAB PO QDAY, #90 TAB 3 Refills Prov:JAMIE BLUE MD 10/11/17 Simvastatin (SIMVASTATIN) 20 Mg Tablet, 1 TAB PO HS, #90 TAB 4 Refills Prov:JAMIE BLUE MD 04/25/17 Clobetasol Propionate/Emoll (CLOBETASOL EMOLLIENT 0.05% CRM) 15 Gm Cream..g., 2 SEE TP QWEEK Y for prn, #1 TUBE 1 Refill Prov:JAMIE BLUE MD 01/06/17 Reported Medications Fluocinonide (FLUOCINONIDE) 60 Gm Gel..gram., 0.05 GM TP DIRECTED Y for DRY MOUTH 05/24/18 Glucosamine Sulfate 2KCL (GLUCOSAMINE) 1,000 Mg Tablet, 2000 MG PO BID 05/24/18 Fexofenadine Hcl (MARCIO ALLERGY) 180 Mg Tablet, 180 MG PO DIRECTED pt takes 1 tab 2hours prior to allergy shots, has allergy shots every 2 weeks 05/24/18 Calcium Carbonate (CALCIUM) 500 Mg Tablet, 1 TAB PO QDAY 04/05/17 Cyanocobalamin (Vitamin B-12) (VITAMIN B-12) 1,000 Mcg Tablet, 1 MCG PO QDAY 04/05/17 Fluticasone/Vilanterol 100/25 Mcg/Inh (BREO ELLIPTA 100/25 MCG) 1 Each Aer.pow.ba, 1 INH INH QDAY, INH 02/22/17 Cholecalciferol (Vitamin D3) (VITAMIN D) 1,000 Unit Tablet, 1 TAB PO DAILY 08/21/14 Discontinued Scripts Benzonatate 100 Mg Cap (TESSALON PERLE 100 MG CAP) 100 Mg Capsule, 100 MG PO TID Y for cough, #30 CAP Prov:JAMIE BLUE MD 02/13/18 Sulfamethoxazole/Trimet 800-160 Mg Tab (BACTRIM DS TABLET) 1 Each Tablet, 1 TAB PO Q12H for 5 Days, #10 TAB Prov:JAMIE BLUE MD 04/26/18 Diet: Regular Activity: As Tolerated Copies to: JAMIE BLUE MD Venous Thromboembolism Antithrombotics Is Pt On Any Antithrombotics?: YARELY Mast MUSIC HISTORIAN May 25, 2018 08:34
[2018-05-25] MEDS: amLODIPine BESYL(*) 5 MG TAB PO SCH (08:49)
[2018-05-25] MEDS: LOSARTAN POTASSIUM 50 MG TAB PO SCH (08:49)
== END 2018-05-25 10:30 | disposition home or self-care (01) | DRG 645 ==
LOC: ER 20:31 → MED 05-24 00:15
PROVIDERS: ADMIT Internal Medicine; ATTEND Internal Medicine
DX: E22.2 Syndrome of inappropriate secretion of antidiuretic hormone (principal); G89.29 Other chronic pain; I10 Essential (primary) hypertension; R05 Cough; Z90.49 Acquired absence of other specified parts of digestive tract; E03.9 Hypothyroidism, unspecified; R11.2 Nausea with vomiting, unspecified; E78.5 Hyperlipidemia, unspecified
CPT/HCPCS: 36415; 72100; 74177; 81001; 82040; 82247; 82310; 82374; 82435; 82565; 82947; 83605; 83690; 83930; 83935; 84075; 84132; 84155; 84295; 84300; 84450; 84460; 84520; 85025; A4353; J2405; J7030; J7040; Q9967

== ENCOUNTER → 2018-05-30 | Outpatient (CLI) | payer MEDICARE, BC ==
[2018-05-24 10:40] VITALS: BMI 24.9
[~2018-05-30] MED LIST changes: +FLUO60GE TP; +GLUC100026 PO
[2018-05-30 13:33] LABS: PLATELET COUNT, AUTOMATED 400 K/uL (150-450)
== END ==
LOC: LAB 13:04
PROVIDERS: ATTEND Internal Medicine
DX: I10 Essential (primary) hypertension (principal); E87.1 Hypo-osmolality and hyponatremia; E03.9 Hypothyroidism, unspecified
CPT/HCPCS: 36415; 82040; 82247; 82310; 82374; 82435; 82565; 82947; 84075; 84132; 84155; 84295; 84443; 84450; 84460; 84520; 84550; 85025

== ENCOUNTER → 2018-07-03 | Outpatient (CLI) | payer MEDICARE, BC ==
[2018-05-24 10:40] VITALS: BMI 24.9
== END ==
LOC: LAB 08:12
PROVIDERS: ATTEND Internal Medicine
DX: E87.1 Hypo-osmolality and hyponatremia (principal); I10 Essential (primary) hypertension
CPT/HCPCS: 36415; 82310; 82374; 82435; 82565; 82947; 84132; 84295; 84520

== ENCOUNTER → 2018-09-14 | Outpatient (CLI) | payer MEDICARE, BC ==
[2018-05-24 10:40] VITALS: BMI 24.9
[~2018-09-14] MED LIST changes: +ALB18R INH; +AMLO-111 PO; -AMLO-96 PO; -LOSA25TA50 PO; +LOSA25TA52 PO; -LOSA50TA72 PO; +LOSA50TA74 PO
--- NOTE | 2018-09-14 14:57 | RADIOLOGY IMAGING REPORT ---
FACILITY: [facility] - [place] PATIENT NAME: Treva Dickens : 1935 MR: [id number] V: [id number] EXAM DATE: ORDERING PHYSICIAN: CLEMENT SEGURA TECHNOLOGIST: Location: [facility] Patient: Treva Dickens : 1935 Visit/Account:[id number] Date of Sevice: 09/14/2018 CHEST PA AND LAT INDICATION: Iritis, rule out sarcoid COMPARISON: 4-18 FINDINGS: Heart size within normal limits. There is no focal infiltrate or lobar consolidation. There is no pneumothorax or pleural effusion. There is stable eventration of the right hemidiaphragm IMPRESSION: 1. No acute cardiopulmonary process. No radiographic evidence of sarcoid Report Dictated By: Giovany Rocha at 09/14/2018 2:51 PM Report E-Signed By: Giovany Rocha at 09/14/2018 2:53 PM WSN:[id number]
== END ==
LOC: LAB 13:34
PROVIDERS: ATTEND Technician/Technologist Ophthalmic
DX: H20.019 Primary iridocyclitis, unspecified eye (principal)
CPT/HCPCS: 36415; 71046; 81380; 82164; 85651; 86038; 86430; 86580; 86617; 86780; 86812

== ENCOUNTER → 2018-11-03 | Outpatient (CLI) | payer MEDICARE, BC ==
[2018-05-24 10:40] VITALS: BMI 24.9
[~2018-11-03] MED LIST changes: -LOSA25TA52 PO; +LOSA25TA57 PO; -LOSA50TA74 PO; +LOSA50TA80 PO
== END ==
LOC: LAB 09:14
PROVIDERS: ATTEND Internal Medicine
DX: N39.0 Urinary tract infection, site not specified (principal)
CPT/HCPCS: 81001; 87077; 87088; 87186

== ENCOUNTER → 2018-12-12 | Outpatient (CLI) | payer MEDICARE, BC ==
[2018-05-24 10:40] VITALS: BMI 24.9
[~2018-12-12] MED LIST changes: -AMLO-111 PO; +AMLO-125 PO
[2018-12-12 09:00] LABS: PLATELET COUNT, AUTOMATED 375 K/uL (150-450)
== END ==
LOC: LAB 08:39
PROVIDERS: ATTEND Internal Medicine
DX: I10 Essential (primary) hypertension (principal); E03.9 Hypothyroidism, unspecified; E78.5 Hyperlipidemia, unspecified
CPT/HCPCS: 36415; 82040; 82247; 82310; 82374; 82435; 82465; 82565; 82947; 83718; 84075; 84132; 84155; 84295; 84439; 84443; 84450; 84460; 84478; 84520; 85025

== ENCOUNTER → 2019-03-15 | Outpatient (CLI) | payer MEDICARE, BC ==
[2018-05-24 10:40] VITALS: BMI 24.9
== END ==
LOC: LAB 15:31
PROVIDERS: ATTEND Internal Medicine
DX: R35.0 Frequency of micturition (principal); N39.0 Urinary tract infection, site not specified
CPT/HCPCS: 81001; 87088

== ENCOUNTER → 2019-03-22 | Outpatient (CLI) | payer MEDICARE, BC ==
[2018-05-24 10:40] VITALS: BMI 24.9
[2019-03-22 16:07] LABS: PLATELET COUNT, AUTOMATED 413 K/uL (150-450)
== END ==
LOC: LAB 15:43
PROVIDERS: ATTEND Internal Medicine
DX: Z00.00 Encounter for general adult medical examination without abnormal findings (principal); E87.1 Hypo-osmolality and hyponatremia; E03.9 Hypothyroidism, unspecified; E78.00 Pure hypercholesterolemia, unspecified; I10 Essential (primary) hypertension; N39.0 Urinary tract infection, site not specified
CPT/HCPCS: 36415; 81001; 82040; 82247; 82310; 82374; 82435; 82565; 82947; 84075; 84132; 84155; 84295; 84439; 84443; 84450; 84460; 84520; 85025

== ENCOUNTER → 2019-04-13 | Outpatient (CLI) | payer MEDICARE, BC ==
[2018-05-24 10:40] VITALS: BMI 24.9
--- NOTE | 2019-04-16 10:03 | RADIOLOGY IMAGING REPORT ---
FACILITY: [facility] PATIENT NAME: RAYMON LOPEZ : [id number] MR: [id number] V: [id number] EXAM DATE: [id number] ORDERING PHYSICIAN: JAMIE BLUE TECHNOLOGIST: Kayleigh Holley PROCEDURE: BILATERAL DIGITAL SCREENING MAMMOGRAM WITH CAD ASSISTED INTERPRETATION & 3D TOMOSYNTHESIS REASON FOR STUDY: Screening. FAMILY HISTORY OF BREAST CANCER: Mother. BREAST PROCEDURES/TREATMENTS: None. COMPARISON: Prior mammograms 09/12/15, 07/17/13, 06/26/12. VIEWS OBTAINED: 2D & 3D full field CC & MLO. MAMMOGRAM FINDINGS: In the upper portion of the Left breast on the Left MLO view in the middle depth there is an asymmetry for which Spot compression view is recommended. This is best identified on Tomographic slice 22. IMPRESSION: BIRADS 0: Incomplete. Additional views of the Left breast recommended. DIAGNOSTIC CATEGORY 0--INCOMPLETE: NEED ADDITIONAL IMAGING EVALUATION. RECOMMENDATIONS: ADDITIONAL MAMMOGRAPHIC VIEWS REQUIRED: LEFT BREAST. Dictated by: Fidelia Ross M.D. on 04/13/2019 at 15:13 Transcribed by: NAIMA on 04/16/2019 at 9:42 Approved by: Fidelia Ross M.D. on 04/16/2019 at 10:02 [facility]
== END ==
LOC: MAMO 02:14
PROVIDERS: ATTEND Internal Medicine
DX: R92.2 Inconclusive mammogram (principal); Z80.3 Family history of malignant neoplasm of breast
CPT/HCPCS: 77063; 77067

== ENCOUNTER → 2019-04-24 | Outpatient (CLI) | payer MEDICARE, BC ==
[2018-05-24 10:40] VITALS: BMI 24.9
--- NOTE | 2019-04-25 10:50 | RADIOLOGY IMAGING REPORT ---
FACILITY: [facility] - [place] PATIENT NAME: RAYMON LOPEZ : [id number] MR: [id number] V: [id number] EXAM DATE: [id number] ORDERING PHYSICIAN: JAMIE BLUE TECHNOLOGIST: Aleyda Paige PROCEDURE:LEFT DIGITAL MAMMOGRAM DIAGNOSTIC WITH CAD ASSISTED INTERPRETATION & 3D TOMOSYNTHESIS REASON FOR STUDY: Follow up FAMILY HISTORY OF BREAST CANCER: Mother BREAST PROCEDURES/TREATMENTS: None COMPARISON STUDIES: 04/13/19, 09/12/15, 07/17/13, 06/26/12 MAMMOGRAM VIEWS OBTAINED: Bilateral 2D & 3D spot compression views in the Left CC & MLO projections. BREAST DENSITY: MAMMOGRAM FINDINGS: The small asymmetry in the upper outer quadrant of the Left breast in the middle depth appears slightly less prominent although is still identified on the spot compression views. Today's Left breast Ultrasound demonstrated no sonographic correlate. Therefore a 6 month follow up mammogram is recommended unless clinical findings warrant more immediate attention. ULTRASOUND AREA SCANNED: 11-4 o'clock position of the Left breast. ULTRASOUND FINDINGS: No sonographic correlate was identified in the upper outer quadrant of the Left breast to account for mammographic findings. There were several mildly prominent ducts in the Left areolar breast although there was no internal debris or internal mass. DIAGNOSTIC CATEGORY 3--PROBABLY BENIGN FINDING. RECOMMENDATIONS: SIX MONTH FOLLOW-UP DIAGNOSTIC MAMMOGRAM: LEFT BREAST. IMPRESSION: BIRADS 3: Probably benign finding. No sonographic correlate could be identified to account for the small asymmetry in the upper outer quadrant of the Left breast. This asymmetry appeared slightly less prominent on spot compression views. A 6 month follow up Left mammogram is recommended to document stability. Dictated by: Fidelia Ross M.D. on 04/24/2019 at 15:21 Transcribed by: ADRIANNA on 04/25/2019 at 7:21 Approved by: Fidelia Ross M.D. on 04/25/2019 at 10:47 [facility]
--- NOTE | 2019-04-25 10:50 | RADIOLOGY IMAGING REPORT ---
FACILITY: [facility] - [place] PATIENT NAME: RAYMON LOPEZ : [id number] MR: [id number] V: [id number] EXAM DATE: [id number] ORDERING PHYSICIAN: JMAIE BLUE TECHNOLOGIST: Pati Littlejohn RDMS(ABD,OBGYN,BR),RVT PROCEDURE:LEFT DIGITAL MAMMOGRAM DIAGNOSTIC WITH CAD ASSISTED INTERPRETATION & 3D TOMOSYNTHESIS REASON FOR STUDY: Follow up FAMILY HISTORY OF BREAST CANCER: Mother BREAST PROCEDURES/TREATMENTS: None COMPARISON STUDIES: 04/13/19, 09/12/15, 07/17/13, 06/26/12 MAMMOGRAM VIEWS OBTAINED: Bilateral 2D & 3D spot compression views in the Left CC & MLO projections. BREAST DENSITY: MAMMOGRAM FINDINGS: The small asymmetry in the upper outer quadrant of the Left breast in the middle depth appears slightly less prominent although is still identified on the spot compression views. Today's Left breast Ultrasound demonstrated no sonographic correlate. Therefore a 6 month follow up mammogram is recommended unless clinical findings warrant more immediate attention. ULTRASOUND AREA SCANNED: 11-4 o'clock position of the Left breast. ULTRASOUND FINDINGS: No sonographic correlate was identified in the upper outer quadrant of the Left breast to account for mammographic findings. There were several mildly prominent ducts in the Left areolar breast although there was no internal debris or internal mass. DIAGNOSTIC CATEGORY 3--PROBABLY BENIGN FINDING. RECOMMENDATIONS: SIX MONTH FOLLOW-UP DIAGNOSTIC MAMMOGRAM: LEFT BREAST. IMPRESSION: BIRADS 3: Probably benign finding. No sonographic correlate could be identified to account for the small asymmetry in the upper outer quadrant of the Left breast. This asymmetry appeared slightly less prominent on spot compression views. A 6 month follow up Left mammogram is recommended to document stability. Dictated by: Fidelia Ross M.D. on 04/24/2019 at 15:21 Transcribed by: ADRIANNA on 04/25/2019 at 7:21 Approved by: Fidelia Ross M.D. on 04/25/2019 at 10:47 [facility]
== END ==
LOC: MAMO 00:27
PROVIDERS: ATTEND Internal Medicine
DX: N60.42 Mammary duct ectasia of left breast (principal)
CPT/HCPCS: 77061; 77065

== ENCOUNTER → 2019-06-19 | Outpatient (CLI) | payer MEDICARE, BC ==
[2018-05-24 10:40] VITALS: BMI 24.9
== END ==
LOC: LAB 08:25
PROVIDERS: ATTEND Internal Medicine
DX: E87.1 Hypo-osmolality and hyponatremia (principal)
CPT/HCPCS: 36415; 82040; 82247; 82310; 82374; 82435; 82565; 82947; 84075; 84132; 84155; 84295; 84450; 84460; 84520